=== PATIENT | female | born 1990 | race Caucasian/White ===

== ENCOUNTER 2016-10-21 10:13 | Emergency (ER) | payer SELFPAY ==
--- NOTE | ~2016-10-21 | ER ---
PATIENT'S NAME: DANIEL [facility] AGE: 26 Y [address] ROOM: [place] [id number] LOCATION: ED ADMIT DATE: 10/21/2016 ER/Outpatient Report DISCHARGE DATE: 10/21/2016 FAMILY PHYSICIAN: , NO ATTENDING PHYSICIAN: Jenny Braun Time of Arrival: 1013 hours. Time of Evaluation: 1108 hours. IDENTIFICATION: A 26-year-old female. CHIEF COMPLAINT: Rash. HISTORY OF PRESENT ILLNESS: The patient has a rash to her arms, face, legs, and neck for 3 weeks. She was seen at [facility] 2 weeks ago and got a steroid shot which did improve for 24 hours and then since then has been increasing. She has no ill contacts. No one else she is around has a rash. She has had a cough for the last few days, nonproductive, and a slight sore throat. No fever or chills. No other problems or concerns. No allergen exposure that we could identify. ALLERGIES: NO KNOWN DRUG ALLERGIES. MEDICATIONS: No current medications. She has not taken Benadryl or any antihistamines for this. PAST MEDICAL PROBLEMS: Denies. PAST SURGICAL HISTORY: Prior Surgeries: Right hand surgery. SOCIAL HISTORY: The patient lives in [place]. 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 Tobacco use, denies. Alcohol use, 2 times per month. Drug use, denies. REVIEW OF SYSTEMS: All systems were reviewed and negative other than what is noted in the HPI. PHYSICAL EXAMINATION: VITAL SIGNS: Weight 55 kg. Blood pressure 139/79, pulse 111, respirations [facility] 26 Y [address] ROOM: [place] [id number] LOCATION: ED ADMIT DATE: 10/21/2016 ER/Outpatient Report DISCHARGE DATE: 10/21/2016 FAMILY PHYSICIAN: PHYSICIAN, NO ATTENDING PHYSICIAN: Jenny Braun 20, temperature 98.2, and saturations 100% on room air. GENERAL: A 26-year-old female, in no acute distress. HEENT: Head: Normocephalic and atraumatic. Eyes: Pupils are equal and reactive to light and accommodation. Extraocular movements intact. Nose: Mucosa pink. No lesions or drainage. Mouth: No lesions. Pharynx benign. Oropharynx: Moderately erythematous. No exudate. NECK: Supple. No lymphadenopathy. No nuchal rigidity. LUNGS: Clear to auscultation. HEART: Regular rate and rhythm. ABDOMEN: Bowel sounds present. Soft, nondistended, and nontender. SKIN: The patient has an erythematous maculopapular rash on her forearms, anterior thighs, neck, and a little bit on the left side of her face. It is more of a hive-like rash on the left side of her face. She has no linear lesions, nothing in the web spaces of the fingers or toes, nothing in the axilla or around the waistband, and nothing in the groin. DIAGNOSTIC DATA: Strep screen is negative. IMPRESSION: Urticaria. PLAN: Urticaria handout. Prednisone taper 20 mg b.i.d. for 2 days, 15 mg b.i.d. for 2 days, 10 mg b.i.d. for 2 days, 10 mg daily for 2 days, and 5 mg daily for 2 days. Benadryl 25 to 50 mg every 6 hours as needed for itching. Aveeno bath as needed. Follow up immediately if any respiratory distress. Follow up with primary care physician next week. I did advise that if she is not getting any improvement, I would take her off work as I am suspecting this may be some sort of an environmental allergy. Follow up immediately if any respiratory distress. The patient understands and agrees, and all questions have been answered. JENNY BRAUN MD CAR/modl /[id number] d: 10/21/160 t: 10/30/16 0757, OUTPATIENT REPORT
== END 2016-10-21 12:02 | disposition disaster alternative care site (69) ==
LOC: GMED 10:13
DX: L50.9 Urticaria, unspecified (principal); Z98.890 Other specified postprocedural states